=== PATIENT | male | born 1980 | race Caucasian/White ===

== ENCOUNTER 2018-05-14 13:08 | Emergency (ER) | payer OTHER ==
[2018-05-14] MEDS ORDERED: LORazepam INJ* 2 MG/ML 1 ML VIAL IV PUSH ONE (13:10)
[2018-05-14 13:38] LABS: Hematocrit 38 % (42-52); Hemoglobin 12.2 g/dl (14.0-18.0); Mean Corpuscular HGB Conc 32 g/dl (31-36); Mean Corpuscular Hemoglobin 18 pg (27-31); Mean Corpuscular Volume 55 fL (80-94); Red Blood Count 6.83 10^6/ul (4.00-5.40); Red Cell Distribution Width 18 % (10.5-15); White Blood Count 7.8 10^3/ul (3.5-10.8)
--- NOTE | 2018-05-14 13:40 | RAD ---
HISTORY: cp COMPARISONS: None VIEWS: 1: frontal AP view of the chest at 1:22 PM FINDINGS: LINES AND TUBES: None. CARDIOMEDIASTINAL SILHOUETTE: The cardiomediastinal silhouette is normal for portable technique. PLEURA: The costophrenic angles are sharp. No pleural abnormalities are noted. LUNG PARENCHYMA: The lungs are clear. ABDOMEN: The upper abdomen is clear. There is no subphrenic gas. BONES AND SOFT TISSUES: No bone or soft tissue abnormalities are noted. IMPRESSION: NO ACTIVE CARDIOPULMONARY DISEASE.
[2018-05-14 13:56] LABS: INR 1.17 (0.77-1.02)
[2018-05-14 13:57] LABS: EGFR Non-African American 73.7 (>60)
[2018-05-14 14:14] LABS: Mean Platelet Volume 9.5 um3 (7.4-10.4); Platelet Count 160 10^3/ul (150-450)
[2018-05-14 14:16] LABS: ABS Basophils 0 10^3/ul (0-0.2); ABS Eosinophils 0 10^3/ul (0-0.6); ABS Lymphocytes 0.7 10^3/ul (1.0-4.8); ABS Monocytes 0.4 10^3/ul (0-0.8); ABS Neutrophils 6.6 10^3/ul (1.5-7.7); ABS Nucleated RBC 0 10^3/ul; Eosinophil % 0.4 % (0-6); Lymphocyte % 8.8 % (25-47); Nucleated Red Blood Cells % 0.3
[2018-05-14] MEDS ORDERED: NS 0.9% 1000 ML* 1,000 ML IV ONE (14:46)
--- NOTE | 2018-05-14 15:01 | RAD ---
HISTORY: brain tumor hx - feels sim to past COMPARISONS: None TECHNIQUE: Multiple contiguous axial CT scans were obtained of the head without intravenous contrast. Coronal and sagittal multiplanar reformations are also submitted for review. FINDINGS: HEMORRHAGE/INFARCT: There is no hemorrhage or acute infarct. MASSES/SHIFT: There is no mass or shift. 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 SULCI AND VENTRICLES: The sulci and ventricles are normal in size and position for the patient's stated age. CEREBRUM: There are no focal parenchymal abnormalities. BRAINSTEM: There are no focal parenchymal abnormalities. CEREBELLUM: There are no focal parenchymal abnormalities. VESSELS: The vessels are grossly normal. PARANASAL SINUSES: The paranasal sinuses are clear. ORBITS: The orbits are unremarkable. BONES AND SOFT TISSUE: There is postsurgical change to the left temporal skull. OTHER: None IMPRESSION: NO ACUTE INTRACRANIAL PATHOLOGY.
--- NOTE | 2018-05-14 16:06 | ED ---
Complex/Multi-Sys Presentation - HPI Summary HPI Summary: Patient is a 37-year-old male with history of brain tumor at 13 years old presenting to the ED with a feeling of diaphoresis and chest pressure acute onset. He states he was working when he felt that he was hyperventilating, experiencing some numbness and tingling in the bilateral upper extremities, and also having some pain to the epigastric region. He denies any chest pain or pressure directly over the chest wall cavity. Denies any back pain. Denies any head pain. He was brought in by ambulance with respirations of 36, normal BP, and tachycardia. Denies any PMH of cardiac or lung problems. Takes no medications. Otherwise healthy. History of anxiety. - History Of Current Complaint Chief Complaint: EDChestPainROMI Time Seen by Provider: 05/14/18 13:09 Hx Obtained From: Patient Onset/Duration: Gradual Onset Timing: Constant Severity Currently: Moderate Severity Initially: Moderate Character: Pressure Associated Signs And Symptoms: Negative: Confusion, Agitation, Dizziness, Nausea , Vomiting, Diarrhea - Allergies/Home Medications Allergies/Adverse Reactions: Allergies Allergy/AdvReac Type Severity Reaction Status Date / Time No Known Allergies Allergy Verified 05/14/18 13:16 Home Medications: Home Medications NK [No Home Medications Reported] 05/14/18 [History Confirmed 05/14/18] PMH/Surg Hx/FS Hx/Imm Hx Previously Healthy: Yes - Immunization History Hx Pertussis Vaccination: No Immunizations Up to Date: Yes Infectious Disease History: No Infectious Disease History: Denies: Traveled Outside the [place] in Last 30 Days - Social History Occupation: Employed Full-time Lives: With Family Alcohol Use: Rare Hx Substance Use: No Substance Use Type: Reports: None Smoking Status (MU): Never Smoked Tobacco Review of Systems Constitutional: Negative Negative: Fever, Chills, Fatigue, Skin Diaphoresis Negative: Palpitations, Chest Pain Negative: Shortness Of Breath, Cough Genitourinary: Negative Positive: no symptoms reported, see HPI Negative: Arthralgia, Myalgia Skin: Negative Neurological: Negative All Other Systems Reviewed And Are Negative: Yes Physical Exam Triage Information Reviewed: Yes Vital Signs On Initial Exam: Initial Vitals Temp Pulse Resp BP Pulse Ox 99.9 F 77 20 102/65 99 05/14/18 13:09 05/14/18 13:09 05/14/18 13:09 05/14/18 13:09 05/14/18 13:09 Vital Signs Reviewed: Yes Appearance: Positive: Well-Appearing, Well-Nourished Skin: Positive: Warm, Skin Color Reflects Adequate Perfusion Head/Face: Positive: Normal Head/Face Inspection Eyes: Positive: EOMI, SERG, Conjunctiva Clear Respiratory/Lung Sounds: Positive: Clear to Auscultation, Breath Sounds Present Cardiovascular: Positive: Tachycardia Musculoskeletal: Positive: Normal, Strength/ROM Intact Neurological: Positive: Sensory/Motor Intact, Alert, Oriented to Person Place, Time, Speech Normal Psychiatric: Positive: Normal, Affect/Mood Appropriate AVPU Assessment: Alert Diagnostics - Vital Signs Vital Signs Temp Pulse Resp BP Pulse Ox 05/14/18 14:01 65 10 100 05/14/18 14:00 66 22 131/72 99 05/14/18 13:30 70 17 127/72 100 05/14/18 13:27 72 22 100 05/14/18 13:26 23 05/14/18 13:09 99.9 F 77 20 102/65 99 - Laboratory Lab Results: Lab Results 05/14/18 05/14/18 05/14/18 Range/Units 13:19 13:19 13:19 WBC 7.8 (3.5-10.8) 10^3/ul RBC 6.83 H (4.00-5.40) 10^6/ul Hgb 12.2 L (14.0-18.0) g/dl Hct 38 L (42-52) % MCV 55 L (80-94) fL MCH 18 L (27-31) pg MCHC 32 (31-36) g/dl RDW 18 H (10.5-15) % Plt Count 160 (150-450) 10^3/ul MPV 9.5 (7.4-10.4) um3 Neut % (Auto) 85.6 H (38-83) % Lymph % (Auto) 8.8 L (25-47) % [place] % (Auto) 5.0 (0-7) % Eos % (Auto) 0.4 (0-6) % Baso % (Auto) 0.2 (0-2) % Absolute Neuts (auto) 6.6 (1.5-7.7) 10^3/ul Absolute Lymphs (auto) 0.7 L (1.0-4.8) 10^3/ul Absolute Monos (auto) 0.4 (0-0.8) 10^3/ul Absolute Eos (auto) 0 (0-0.6) 10^3/ul Absolute Basos (auto) 0 (0-0.2) 10^3/ul Absolute Nucleated RBC 0 10^3/ul Nucleated RBC % 0.3 Hypochromasia 1+ Anisocytosis 1+ Target Cells 1+ Elliptocytes 1+ INR (Anticoag Therapy) 1.17 H (0.77-1.02) APTT 33.1 (26.0-36.3) seconds Sodium 138 (135-145) mmol/L Potassium 3.8 (3.5-5.0) mmol/L Chloride 103 (101-111) mmol/L Carbon Dioxide 26 (22-32) mmol/L Anion Gap 9 (2-11) mmol/L BUN 20 (6-24) mg/dL Creatinine 1.11 (0.67-1.17) mg/dL Est GFR ( Amer) 89.2 (>60) Est GFR (Non-Af Amer) 73.7 (>60) BUN/Creatinine Ratio 18.0 (8-20) Glucose 116 H (70-100) mg/dL Lactic Acid (0.5-2.0) mmol/L Calcium 9.5 (8.6-10.3) mg/dL Magnesium 1.4 L (1.9-2.7) mg/dL Total Bilirubin 1.30 H (0.2-1.0) mg/dL AST 23 (13-39) U/L ALT 34 (7-52) U/L Alkaline Phosphatase 51 (34-104) U/L Total Creatine Kinase 113 (10-223) U/L Troponin I 0.00 (<0.04) ng/mL Total Protein 7.1 (6.4-8.9) g/dL Albumin 4.6 (3.2-5.2) g/dL Globulin 2.5 (2-4) g/dL Albumin/Globulin Ratio 1.8 (1-3) TSH 1.25 (0.34-5.60) mcIU/mL Thyroxine (T4) 9.47 (6.09-12.23) mcg/mL 10/03/18 Range/Units 13:19 WBC (3.5-10.8) 10^3/ul RBC (4.00-5.40) 10^6/ul Hgb (14.0-18.0) g/dl Hct (42-52) % MCV (80-94) fL MCH (27-31) pg MCHC (31-36) g/dl RDW (10.5-15) % Plt Count (150-450) 10^3/ul MPV (7.4-10.4) um3 Neut % (Auto) (38-83) % Lymph % (Auto) (25-47) % [place] % (Auto) (0-7) % Eos % (Auto) (0-6) % Baso % (Auto) (0-2) % Absolute Neuts (auto) (1.5-7.7) 10^3/ul Absolute Lymphs (auto) (1.0-4.8) 10^3/ul Absolute Monos (auto) (0-0.8) 10^3/ul Absolute Eos (auto) (0-0.6) 10^3/ul Absolute Basos (auto) (0-0.2) 10^3/ul Absolute Nucleated RBC 10^3/ul Nucleated RBC % Hypochromasia Anisocytosis Target Cells Elliptocytes INR (Anticoag Therapy) (0.77-1.02) APTT (26.0-36.3) seconds Sodium (135-145) mmol/L Potassium (3.5-5.0) mmol/L Chloride (101-111) mmol/L Carbon Dioxide (22-32) mmol/L Anion Gap (2-11) mmol/L BUN (6-24) mg/dL Creatinine (0.67-1.17) mg/dL Est GFR ( Amer) (>60) Est GFR (Non-Af Amer) (>60) BUN/Creatinine Ratio (8-20) Glucose (70-100) mg/dL Lactic Acid 2.3 H* (0.5-2.0) mmol/L Calcium (8.6-10.3) mg/dL Magnesium (1.9-2.7) mg/dL Total Bilirubin (0.2-1.0) mg/dL AST (13-39) U/L ALT (7-52) U/L Alkaline Phosphatase (34-104) U/L Total Creatine Kinase (10-223) U/L Troponin I (<0.04) ng/mL Total Protein (6.4-8.9) g/dL Albumin (3.2-5.2) g/dL Globulin (2-4) g/dL Albumin/Globulin Ratio (1-3) TSH (0.34-5.60) mcIU/mL Thyroxine (T4) (6.09-12.23) mcg/mL Result Diagrams: 05/14/18 13:19 05/14/18 13:19 Lab Statement: Any lab studies that have been ordered have been reviewed, and results considered in the medical decision making process. Complex Multi-Symp Course/Dx Course Of Treatment: Labs obtained including a troponin which was 0.00. Chest x -ray normal for any acute cardiopulmonary disease. He states when he was diagnosed with his brain tumor, he was having similar symptoms and was concerned , requesting a CT of the brain. This was obtained it is negative for any acute intracranial pathologies. On physical examination, lungs CTA, RRR. Patient is given Ativan 1 mg with good relief. He denies any chest pain or abdominal pain. On physical examination, there is no tenderness throughout all quadrants and patient is stating he is feeling vastly improved after the Ativan. He states the numbness and tingling in his bilateral arms decreased significantly. Due to his labs, vital signs and history of anxiety, he will be diagnosed with anxiety. EKG obtained which shows no ST elevations or other acute abnormalities. I do not believe this is cardiac related. He is given strict return precautions and is discharged at this time with the diagnosis of anxiety. - Diagnoses Provider Diagnoses: Anxiety Discharge - Sign-Out/Discharge Documenting (check all that apply): Patient Departure - Discharge Plan Condition: Stable Disposition: HOME Patient Education Materials: Anxiety (ED) Referrals: Asif Moya MD [Primary Care Provider] - - Billing Disposition and Condition Condition: STABLE Disposition: Home
[2018-05-14 16:40] VITALS: BP 118/70
== END 2018-05-14 16:40 | disposition home or self-care (01) ==
LOC: ED 13:08
DX: F41.9 Anxiety disorder, unspecified (principal); R07.89 Other chest pain; R00.0 Tachycardia, unspecified; G93.0 Cerebral cysts; Z86.03 Personal history of neoplasm of uncertain behavior
CPT/HCPCS: 36415; 70450; 71045; 80053; 82550; 83605; 83735; 84436; 84443; 84484; 85025; 85610; 85730; 93005; 96374; 99283; J2060